=== PATIENT | female | born 1940 | race Caucasian/White ===

== ENCOUNTER 2022-03-14 08:45 | Emergency (ER) | payer MEDICARE, OTHER ==
[~2022-03-14] VITALS: Ht 162.6 cm; Wt 86.2 kg
--- NOTE | 2022-03-14 08:55 | NUR ---
BIB DAUGHTER C/O PROGRESSIVELY WORSENING COUGH AND CONGESTION X 5 DAYS. PT STARTED TAKING ANTIBIOTICS YESTERDAY. DENIES FEVER. AAOX4, BREATHING EVEN AND UNLABORED, NOT IN RESP DISTRESS. WHEEZING NOTED. POX 96 ON RA.
--- NOTE | 2022-03-14 09:01 | NUR ---
COVID SAMPLE OBTAINED AND SENT TO LAB
--- NOTE | 2022-03-14 09:26 | NUR ---
WARM BLANKETS GIVEN, PT MADE COMFORTABLE, NEEDS MET
--- NOTE | 2022-03-14 09:28 | NUR ---
X RAY AT BEDSIDE
--- NOTE | 2022-03-14 09:54 | NUR ---
PT, FAMILY, AND MD NOTIFIED THAT COVID +
[2022-03-14] MEDS ORDERED: paxlovid (10:01)
--- NOTE | 2022-03-14 10:10 | NUR ---
Patient discharged to home in stable condition. Written and verbal after care instructions given. Patient verbalizes understanding of instruction.
[2022-03-14 10:11] VITALS: BP 134/79
== END 2022-03-14 10:12 | disposition home or self-care (01) ==
LOC: ER 08:50
DX: U07.1 COVID-19 (principal); F17.200 Nicotine dependence, unspecified, uncomplicated; I10 Essential (primary) hypertension
CPT/HCPCS: 71045-TC; C9803; U0003